=== PATIENT | male | born 1945 | race Caucasian/White ===

== ENCOUNTER → 2016-05-30 | Outpatient (CLI) | payer OTHER ==
[~2016-05-30] MED LIST: ASCA500 PO; ASPI81TA28 PO; CHOL100010 PO; CYAN10005 PO; ECHINACEA PO; MULT-506 PO; OXYC-57 PO; SENNTAB23 PO; SIMV40TA2 PO; VITA400C15 PO
--- NOTE | 2016-05-30 11:54 | DIAGNOSTIC IMAGING REPORT ---
ABDOMINAL AORTIC ULTRASOUND CLINICAL HISTORY: Follow-up of abdominal aortic aneurysm. COMPARISON STUDY: CT of the abdomen from [facility] performed October 13, 2015. FINDINGS: The caliber of the proximal abdominal aorta is normal, measuring 1.7 cm. The caliber of the mid abdominal aorta is normal, measuring 2 cm. Note is made of a 3.6 x 3.5 cm infrarenal abdominal aortic aneurysm which is similar to prior CT of October 03, 2015. The caliber of the proximal bilateral common iliac arteries is normal. There is moderate to extensive atherosclerotic plaque of these vessels. IMPRESSION: No change in a 3.6 cm infrarenal abdominal aortic aneurysm since prior CT of October 13, 2015. Electronically signed by: Singh Sherman M.D. 05/30/2016 11:52 AM
== END | disposition home or self-care (01) ==
LOC: C.ULTR 11:12
PROVIDERS: ATTEND Surgery
DX: I71.4 Abdominal aortic aneurysm, without rupture (principal)

== ENCOUNTER → 2016-09-27 | Outpatient (CLI) | payer OTHER ==
[2016-09-27 12:19] LABS: BASO % 0.7 %; BASO ABS # 0.03 K/uL (0-0.2); COMPLETE YES; EOS % 1.7 %; HEMATOCRIT 41.9 % (42-52); LYMPH % 35.5 %; LYMPH ABS # 1.45 K/uL (1.2-3.4); MEAN CORPUSCULAR HEMOGLOBIN 33.9 pg (25-34); MEAN CORPUSCULAR HGB CONC 33.9 g/dl (32-36); MEAN PLATELET VOLUME 10.2 fL (7.4-10.4); MONO % 11.3 %; NEUT % 50.8 %; PLATELET COUNT 245 K/uL (130-400); RED BLOOD COUNT 4.19 M/uL (4.7-6.1); WHITE BLOOD COUNT 4.08 K/uL (4.8-10.8)
[2016-09-27 13:08] LABS: ALT/SGPT 32 U/L (12-78); AST/SGOT 26 U/L (15-37); BLOOD UREA NITROGEN 13 mg/dl (7-18); BUN/CREATININE RATIO 14.8 (10-20); CALCIUM 9.6 mg/dl (8.5-10.1); CARBON DIOXIDE 28 mmol/L (21-32); CHLORIDE 107 mmol/L (98-107); GLUCOSE 98 mg/dl (70-99); POTASSIUM 4.3 mmol/L (3.5-5.1); SODIUM 142 mmol/L (136-145)
[2016-09-27 13:13] LABS: ALB/GLOB RATIO 1.2 (0.9-2); ALKALINE PHOSPHATASE 87 U/L (45-117); CHOLESTEROL 138 mg/dl (0-200); CHOLESTEROL/HDL RATIO 2.7; HDL CHOLESTEROL 52 mg/dl; LDL CHOLESTEROL CALCULATED 69 mg/dl; TRIGLYCERIDES 85 mg/dl (0-150); VERY LOW DENSITY LIPOPROT CALC 17 mg/dl
== END | disposition home or self-care (01) ==
LOC: C.LABBFT 09:23
PROVIDERS: ATTEND Internal Medicine
DX: D64.9 Anemia, unspecified (principal); E78.5 Hyperlipidemia, unspecified

== ENCOUNTER → 2017-04-05 | Outpatient (CLI) | payer OTHER ==
[~2017-04-05] MED LIST changes: -OXYC-57 PO
[2017-04-05 12:42] LABS: BASO % 0.2 %; BASO ABS # 0.01 K/uL (0-0.2); COMPLETE YES; EOS % 1.5 %; IG% 0.2 %; LYMPH % 31.1 %; LYMPH ABS # 1.64 K/uL (1.2-3.4); MEAN CELL VOLUME 100.7 fL (80-100); MEAN CORPUSCULAR HEMOGLOBIN 32.9 pg (25-34); MEAN CORPUSCULAR HGB CONC 32.7 g/dl (32-36); MONO % 10.6 %; NEUT % 56.4 %; PLATELET COUNT 227 K/uL (130-400); RED BLOOD COUNT 4.07 M/uL (4.7-6.1); WHITE BLOOD COUNT 5.28 K/uL (4.8-10.8)
== END | disposition home or self-care (01) ==
LOC: C.LABBFT 07:48
PROVIDERS: ATTEND Internal Medicine
DX: D72.819 Decreased white blood cell count, unspecified (principal)

== ENCOUNTER → 2017-05-02 | Outpatient (CLI) | payer OTHER ==
--- NOTE | 2017-05-02 11:54 | DIAGNOSTIC IMAGING REPORT ---
CT LUNG SCREENING, LOW DOSE WITH COMPUTER-AIDED DETECTION (CAD) CLINICAL HISTORY: 71 years-old Male presents for lung screening study. History of tobacco views COMPARISON STUDY: CT chest 10/03/2015 CT DOSE: 73.66 mGycm TECHNIQUE: Low-dose helical CT was acquired without intravenous contrast from lung apices to bases and reconstructed at 2.5 mm every 2 mm. CAD was utilized for this study. A dose lowering technique was utilized adhering to the principles of ALARA. FINDINGS: No dominant thyroid nodule identified. No pathologic-appearing adenopathy about the chest identified. There is mild multichamber cardiac enlargement with three-vessel distribution of coronary arterial disease. No aortic aneurysm identified. There is moderate atherosclerotic plaquing of the aorta and proximal great vessels. Mild upper lobe predominant centrilobular and paraseptal emphysematous changes are again seen. There is no pneumothorax, pleural effusion or focal airspace consolidation. Subsegmental subpleural reticular opacities of the bilateral lungs, right greater than left suggest areas of scarring/fibrosis. 4 mm pleural-based solid nodule of the left lower lobe as seen on image 23 series 3. Calcific granuloma involves segment left lower lobe. 4 mm solid nodule seen within the lingula, image 151 series 3. 5 mm solid nodule is pleural-based within the right middle lobe lateral segment, image 157 series 3 with additional 3 mm nodule right middle lobe seen on image 158 series 3. Calcified granuloma of the apical segment right upper lobe. Central airways are patent with mild layering mucosal secretions. No acute amount of the imaged upper abdomen identified. Soft tissues are unremarkable. Multilevel endplate spurring of the spine. Multilevel facet arthrosis. IMPRESSION: 1. No acute intrathoracic abnormality identified. 2. A few bilateral solid noncalcified pulmonary nodules of the lungs bilaterally are present as above, largest of which measures up to 5 mm. Follow-up guidelines provided below. 3. Mild upper lobe predominant centrilobular and paraseptal emphysema. 4. No pathologic adenopathy. 5. Prior granulomatous disease. CAD FINDINGS: Overall Lung RADS Category: 2 Lung RADS Management Recommendation: Continue annual lung cancer screening. The above report was generated using voice recognition software. It may contain grammatical, syntax or spelling errors. Electronically signed by: Fish Rand M.D. 05/02/2017 11:53 AM Dictated Date/Time: 05/02/2017 10:55 AM
== END | disposition home or self-care (01) ==
LOC: C.CTS 10:18
PROVIDERS: ATTEND Internal Medicine
DX: Z87.891 Personal history of nicotine dependence (principal); R91.8 Other nonspecific abnormal finding of lung field

== ENCOUNTER → 2017-06-11 | Outpatient (CLI) | payer OTHER ==
--- NOTE | 2017-06-11 10:23 | DIAGNOSTIC IMAGING REPORT ---
ULTRASOUND OF THE ABDOMINAL AORTA CLINICAL HISTORY: Follow-up abdominal aortic aneurysm. COMPARISON STUDY: Ultrasound of the abdominal aorta dated 05/30/2016. TECHNIQUE: Multiple barboza scale, color Doppler, and spectral Doppler sonograms of the abdominal aorta and iliac arteries are performed. Images are reviewed in the transverse and longitudinal planes. FINDINGS: There is advanced atherosclerotic calcification and irregularity noted throughout the abdominal aorta. The proximal abdominal aorta measures 1.8 x 1.9 cm (AP times transverse) an the mid abdominal aorta measures 2.2 x 2.2 cm. There is a fusiform aneurysm of the distal abdominal aorta which measures 3.5 x 3.8 cm. The right common iliac artery measures up to 1.2 cm and the left common iliac artery measures up to 1.3 cm. Normal flow and spectral Doppler waveforms are seen within the abdominal right. Velocities measure up to 112 cm/s. IMPRESSION: There is a 3.5 x 3.8 cm aneurysm of the distal abdominal aorta (previously measured 3.5 x 3.6 cm). Electronically signed by: Yahir Kelly M.D. 06/11/2017 10:22 AM Dictated Date/Time: 06/11/2017 10:21 AM
== END | disposition home or self-care (01) ==
LOC: C.ULTR 09:31
PROVIDERS: ATTEND Surgery
DX: I71.4 Abdominal aortic aneurysm, without rupture (principal)

== ENCOUNTER → 2017-10-10 | Outpatient (CLI) | payer OTHER ==
[2017-10-10 12:27] LABS: BASO % 0.4 %; BASO ABS # 0.02 K/uL (0-0.2); EOS % 2.4 %; EOS ABS # 0.11 K/uL (0-0.5); HEMATOCRIT 40.7 % (42-52); HEMOGLOBIN 13.7 g/dL (14.0-18.0); IG# 0.01 K/uL (0.00-0.02); LYMPH % 33.3 %; LYMPH ABS # 1.51 K/uL (1.2-3.4); MEAN CELL VOLUME 98.3 fL (80-100); MEAN CORPUSCULAR HEMOGLOBIN 33.1 pg (25-34); MEAN CORPUSCULAR HGB CONC 33.7 g/dl (32-36); MEAN PLATELET VOLUME 9.7 fL (7.4-10.4); MONO % 12.8 %; MONO ABS # 0.58 K/uL (0.11-0.59); NEUT % 50.9 %; NEUT ABS # 2.31 K/uL (1.4-6.5); PLATELET COUNT 282 K/uL (130-400); RED CELL DISTRIBUTION WIDTH SD 46.8 fL (36.4-46.3); RETIC COUNT % 0.8 % (0.5-2.0); WHITE BLOOD COUNT 4.54 K/uL (4.8-10.8)
[2017-10-10 13:14] LABS: ALBUMIN 3.8 gm/dl (3.4-5.0); ALT/SGPT 33 U/L (12-78); AST/SGOT 31 U/L (15-37); BLOOD UREA NITROGEN 15 mg/dl (7-18); CALCIUM 8.8 mg/dl (8.5-10.1); CARBON DIOXIDE 28 mmol/L (21-32); CHOLESTEROL 141 mg/dl (0-200); CREATININE 0.99 mg/dl (0.60-1.40); GLUCOSE 87 mg/dl (70-99); POTASSIUM 4.2 mmol/L (3.5-5.1); SODIUM 138 mmol/L (136-145)
[2017-10-10 13:23] LABS: ALKALINE PHOSPHATASE 74 U/L (45-117); LDL CHOLESTEROL CALCULATED 74 mg/dl; TOTAL PROTEIN 7.7 gm/dl (6.4-8.2); TRANSFERRIN 235 mg/dl (200-360)
== END | disposition home or self-care (01) ==
LOC: C.LABBFT 08:08
PROVIDERS: ATTEND Internal Medicine
DX: D64.9 Anemia, unspecified (principal); E78.5 Hyperlipidemia, unspecified